=== PATIENT | female | born 1980 | race Caucasian/White ===

== ENCOUNTER 2017-03-02 16:58 | Emergency (ER) | payer SELFPAY ==
[~2017-03-02] VITALS: Ht 167.6 cm; Wt 83.6 kg
[~2017-03-02 16:58] MED LIST: CLINDAMYCIN HC300 MG PO
[2017-03-02] MEDS ORDERED: NARCAN4 MG NS (20:16)
[2017-03-02 20:45] VITALS: BP 108/73
== END 2017-03-02 20:47 | disposition home or self-care (01) ==
LOC: EME 16:58
DX: T40.2X1A Poisoning by other opioids, accidental (unintentional), initial encounter (principal); T51.0X1A Toxic effect of ethanol, accidental (unintentional), initial encounter; Y92.009 Unspecified place in unspecified non-institutional (private) residence as the place of occurrence of the external cause; I46.8 Cardiac arrest due to other underlying condition; R51 Headache; F11.10 Opioid abuse, uncomplicated; F10.10 Alcohol abuse, uncomplicated
CPT/HCPCS: J2310